=== PATIENT | male | born 1950 | race Two or more races ===

== ENCOUNTER 2017-05-09 20:20 | Inpatient (IN) | payer OTHER ==
[~2017-05-09] VITALS: Ht 172.7 cm; Wt 88.2 kg
[2017-05-09] MEDS ORDERED: METOPROLOL TARTRATE 50 MG TAB PO ONE (21:00)
[2017-05-09 21:05] LABS: Basophils # (auto) 0 uL; Basophils % (auto) 0.4 % (0.0-2.0); CONDITION Y; DEFINITIVE SEE PRINTOUT; Eosinophils # (auto) 0.1 uL; Eosinophils % (auto) 0.7 % (0.0-7.0); Hematocrit 50.5 % (41.0-53.0); Hemoglobin 16.3 g/dL (13.5-17.5); Lymphocytes # (auto) 2.8 uL; Lymphocytes % (auto) 24.6 % (10.0-50.0); Mean Corpuscular Hemoglobin 23.9 pg (28.0-32.0); Mean Corpuscular Hgb Conc. 32.3 g/dL (32.0-36.0); Mean Corpuscular Volume 73.9 fL (80.0-100.0); Mean Platelet Volume 7.7 fL (7.4-10.4); Monocytes # (auto) 0.6 uL; Monocytes % (auto) 5.7 % (0.0-12.0); Neutrophils # (auto) 7.7 uL; Neutrophils % (auto) 68.6 % (37.0-80.0); Platelet Count (auto) 288 10^3/uL (140-450); White Blood Cell 11.2 10^3/uL (4.4-10.8)
[2017-05-09 21:19] LABS: INR 1.1 (0.9-1.15); Partial Thromboplastin Time 30.6 sec (22.64-33.71)
[2017-05-09 21:32] LABS: Albumin 2.4 g/dL (3.4-5.0); Alkaline Phosphatase 86 U/L (45-117); Anion Gap 11 (5-15); BUN/Creatinine Ratio 9.7; Bilirubin, Total 0.6 mg/dL (0.2-1.0); Blood Urea Nitrogen 7 mg/dL (7-18); Calcium 8.8 mg/dL (8.5-10.1); Carbon Dioxide 25 mmol/L (21-32); Chloride 100 mmol/L (98-107); GFR African American 141 mL/min; GFR Non-African American 116 mL/min; Glucose 130 mg/dL (74-106); Magnesium 2.3 mg/dL (1.6-2.6); Sodium 136 mmol/L (136-145); Total Protein 7.4 g/dL (6.4-8.2)
[2017-05-09 21:37] LABS: Aspartate Aminotransferase 46 U/L (15-37); Potassium 3.9 mmol/L (3.5-5.1)
[2017-05-09 21:58] LABS: B-Type Natriuretic Peptide 133.76 pg/mL (0-100)
[2017-05-09 21:59] LABS: Temperature: 22.7 C (20.0-25.0)
[2017-05-09] MEDS ORDERED: IOHEXOL 350 MG/ML 100ML IJ ONE (22:45)
[2017-05-10] VITALS (10 sets, daily range): BP systolic 115–133; BP diastolic 65–87
[2017-05-10] MEDS ORDERED: MORPHINE SULF INJ 2 MG/ML SYRINGE 1ML IV PRN (04:00)
[2017-05-10] MEDS ORDERED: LACTULOSE 20Gm/30ML SOLN PO PRN (04:00)
[2017-05-10] MEDS ORDERED: ONDANSETRON HCL 4 MG/2 ML VIAL IV PRN (04:00)
[2017-05-10] MEDS ORDERED: NITROGLYCERIN 0.4 MG SL TAB SL PRN (04:00)
[2017-05-10] MEDS: SODIUM CHLORIDE 0.9% 1,000 ML IV SCH ×2 (04:37→17:27)
[2017-05-10] MEDS: LEVOFLOXACIN 500MG 100 ML IV SCH (04:37)
[2017-05-10] MEDS: MORPHINE SULFATE 4 MG/ML SYRG IV PRN ×4 (04:38→19:59)
[2017-05-10] MEDS: cefTRIAXone 1GM/50ML D5W 50 ML IV SCH (05:00)
[2017-05-10] MEDS ORDERED: ENOXAPARIN SOD 80 MG/0.8ML SYRINGE SC SCH (05:00)
[2017-05-10] MEDS: MESALAMINE 400mg Delayed Release Cap PO SCH ×3 (05:34→22:00)
[2017-05-10] MEDS: ALBUTEROL SULF 2.5 MG/0.5ML(0.5%) NEB SOLN HHN SCH ×5 (06:44→22:04)
[2017-05-10] MEDS: IPRATROPIUM BROM 0.5 MG/2.5ML INH SOL NEB SCH ×5 (06:44→22:04)
[2017-05-10] MEDS: ATENOLOL 50 MG TAB PO SCH (10:52)
[2017-05-10] MEDS: ASPirin 81 mg TAB PO SCH (10:52)
[2017-05-10] MEDS: PANTOPRAZOLE SODIUM 40 MG/10 ML VIAL IV SCH (10:52)
[2017-05-10] MEDS: FINASTERIDE 5 MG TAB PO SCH (10:53)
[2017-05-10] MEDS ORDERED: NAP500T PO (13:22)
[2017-05-10] MEDS ORDERED: SIMV-13 PO (13:22)
[2017-05-10] MEDS ORDERED: METO50TA7 PO (13:22)
[2017-05-10] MEDS ORDERED: ENAL20TA70 PO (13:22)
[2017-05-10] MEDS ORDERED: NITR0.4S29 SL (13:22)
[2017-05-10] MEDS ORDERED: ASPI-231 PO (13:22)
[2017-05-10] MEDS ORDERED: TAMS0.4C36 PO (13:22)
[2017-05-10] MEDS ORDERED: FER325T PO (13:22)
[2017-05-10] MEDS ORDERED: FINA5TAB4 PO (13:22)
[2017-05-10] MEDS ORDERED: IBUP600T27 PO (13:22)
[2017-05-10] MEDS ORDERED: ACETTAB85 PO (13:22)
[2017-05-10] MEDS: TAMSULOSIN HYDROCHLORIDE 0.4 MG CAP PO SCH (18:20)
[2017-05-10] MEDS: AMITRIPTYLINE HCL 25 MG TAB PO SCH (21:54)
[2017-05-10] MEDS: APIXABAN 5 MG TAB PO SCH (21:54)
[2017-05-10] MEDS: ATORVASTATIN 20 MG TAB PO SCH (21:55)
[2017-05-10 23:07] LABS: Urine Bilirubin Negative (Negative); Urine Blood Negative /uL (Negative); Urine Color Yellow (Yellow); Urine Glucose Normal (Normal); Urine Hyaline Cast FEW /lpf (0 - 2); Urine Ketone Negative (Negative); Urine Mucus FEW (None Seen); Urine Nitrite Negative (Negative); Urine RBC 9 /hpf (0 - 3); Urine pH 6.5 (5.0-8.0)
[2017-05-11] VITALS (7 sets, daily range): BP systolic 97–124; BP diastolic 63–74
[2017-05-11] MEDS: IPRATROPIUM BROM 0.5 MG/2.5ML INH SOL NEB SCH ×6 (02:38→22:33)
[2017-05-11] MEDS: ALBUTEROL SULF 2.5 MG/0.5ML(0.5%) NEB SOLN HHN SCH ×6 (02:38→22:33)
[2017-05-11] MEDS: LEVOFLOXACIN 500MG 100 ML IV SCH (04:09)
[2017-05-11] MEDS: cefTRIAXone 1GM/50ML D5W 50 ML IV SCH (04:17)
[2017-05-11] MEDS: MORPHINE SULFATE 4 MG/ML SYRG IV PRN ×4 (05:34→23:16)
[2017-05-11 06:00] LABS: Basophils # (auto) 0 uL; Basophils % (auto) 0.4 % (0.0-2.0); CONDITION Y; DEFINITIVE SEE PRINTOUT; Eosinophils # (auto) 0.1 uL; Eosinophils % (auto) 0.7 % (0.0-7.0); Hematocrit 46.9 % (41.0-53.0); Hemoglobin 15.3 g/dL (13.5-17.5); Lymphocytes # (auto) 1.3 uL; Lymphocytes % (auto) 15.1 % (10.0-50.0); Mean Corpuscular Hemoglobin 24.4 pg (28.0-32.0); Mean Corpuscular Hgb Conc. 32.7 g/dL (32.0-36.0); Mean Corpuscular Volume 74.7 fL (80.0-100.0); Mean Platelet Volume 7.8 fL (7.4-10.4); Monocytes # (auto) 0.5 uL; Monocytes % (auto) 5.6 % (0.0-12.0); Neutrophils # (auto) 6.8 uL; Neutrophils % (auto) 78.2 % (37.0-80.0); Platelet Count (auto) 266 10^3/uL (140-450); Red Cell Distribution Width 16.8 % (11.6-16.0); White Blood Cell 8.7 10^3/uL (4.4-10.8)
[2017-05-11 06:08] LABS: Albumin 2.2 g/dL (3.4-5.0); BUN/Creatinine Ratio 11.6; Bilirubin, Total 0.6 mg/dL (0.2-1.0); Calcium 8.4 mg/dL (8.5-10.1); Potassium 3.1 mmol/L (3.5-5.1); Total Protein 6.4 g/dL (6.4-8.2)
[2017-05-11] MEDS: SODIUM CHLORIDE 0.9% 1,000 ML IV SCH ×2 (06:30→22:36)
[2017-05-11] MEDS: MESALAMINE 400mg Delayed Release Cap PO SCH ×3 (09:04→22:37)
[2017-05-11] MEDS ORDERED: POTASSIUM CHL 20 Meq TABLET PO ONE (10:30)
[2017-05-11] MEDS: ATENOLOL 50 MG TAB PO SCH (10:59)
[2017-05-11] MEDS: ASPirin 81 mg TAB PO SCH (11:00)
[2017-05-11] MEDS: FINASTERIDE 5 MG TAB PO SCH (11:00)
[2017-05-11] MEDS: PANTOPRAZOLE SODIUM 40 MG/10 ML VIAL IV SCH (11:01)
[2017-05-11] MEDS: APIXABAN 5 MG TAB PO SCH ×2 (11:01→22:37)
[2017-05-11] MEDS ORDERED: DEXTROSE (50%) 50ML SYRG IV PRN (12:00)
[2017-05-11] MEDS: InsuLIN REG 1unit/0.01ml Soln (100units/ml) SC SCH ×2 (17:00→22:00)
[2017-05-11] MEDS: ACCU-CHEK COMFORT CURVE STRIP VI SCH ×2 (18:01→22:38)
[2017-05-11] MEDS: TAMSULOSIN HYDROCHLORIDE 0.4 MG CAP PO SCH (18:02)
[2017-05-11] MEDS: ATORVASTATIN 20 MG TAB PO SCH (22:37)
[2017-05-11] MEDS: AMITRIPTYLINE HCL 25 MG TAB PO SCH (22:43)
[2017-05-12] VITALS: BP 109/73
[2017-05-12] MEDS: IPRATROPIUM BROM 0.5 MG/2.5ML INH SOL NEB SCH ×6 (02:00→22:39)
[2017-05-12] MEDS: ALBUTEROL SULF 2.5 MG/0.5ML(0.5%) NEB SOLN HHN SCH ×6 (02:00→22:38)
[2017-05-12 04:00] VITALS: BP 119/79
[2017-05-12] MEDS: LEVOFLOXACIN 500MG 100 ML IV SCH (04:05)
[2017-05-12] MEDS: cefTRIAXone 1GM/50ML D5W 50 ML IV SCH (05:06)
[2017-05-12] MEDS: MESALAMINE 400mg Delayed Release Cap PO SCH ×3 (05:06→21:52)
[2017-05-12] MEDS: MORPHINE SULFATE 4 MG/ML SYRG IV PRN ×3 (05:07→14:37)
[2017-05-12] MEDS: ACCU-CHEK COMFORT CURVE STRIP VI SCH ×4 (06:31→22:04)
[2017-05-12 06:32] LABS: BUN/Creatinine Ratio 7.9; Calcium 8.2 mg/dL (8.5-10.1); Potassium 3.3 mmol/L (3.5-5.1)
[2017-05-12] MEDS: InsuLIN REG 1unit/0.01ml Soln (100units/ml) SC SCH ×4 (06:32→22:00)
[2017-05-12 08:00] VITALS: BP 134/88
[2017-05-12] MEDS: predniSONE 20 MG TAB PO SCH (10:20)
[2017-05-12] MEDS: ASPirin 81 mg TAB PO SCH (10:20)
[2017-05-12] MEDS: PANTOPRAZOLE SODIUM 40 MG/10 ML VIAL IV SCH (10:20)
[2017-05-12] MEDS: APIXABAN 5 MG TAB PO SCH ×2 (10:21→21:52)
[2017-05-12] MEDS: ATENOLOL 50 MG TAB PO SCH (10:21)
[2017-05-12] MEDS: FINASTERIDE 5 MG TAB PO SCH (10:22)
[2017-05-12 12:00] VITALS: BP 113/65
[2017-05-12] MEDS ORDERED: POTASSIUM CHL 20 Meq TABLET PO ONE (13:00)
[2017-05-12] MEDS: SODIUM CHLORIDE 0.9% 1,000 ML IV SCH (15:00)
[2017-05-12] MEDS ORDERED: NORT25CA PO (15:37)
[2017-05-12] MEDS ORDERED: PRED-559 PO (15:37)
[2017-05-12] MEDS ORDERED: METF-371 PO (15:37)
[2017-05-12 15:47] VITALS: BP 127/78
[2017-05-12] MEDS: TAMSULOSIN HYDROCHLORIDE 0.4 MG CAP PO SCH (18:11)
[2017-05-12] MEDS: MORPHINE SULF INJ 2 MG/ML SYRINGE 1ML IV PRN ×3 (20:17→23:57)
[2017-05-12] MEDS: AMITRIPTYLINE HCL 25 MG TAB PO SCH (21:51)
[2017-05-12] MEDS: ATORVASTATIN 20 MG TAB PO SCH (21:52)
[2017-05-12 22:10] VITALS: BP 110/77
[2017-05-12] MEDS: HYDROCORTISONE 100 MG/60 ML RECT ENEMA PR SCH (22:25)
[2017-05-13] MEDS: IPRATROPIUM BROM 0.5 MG/2.5ML INH SOL NEB SCH ×6 (02:12→22:22)
[2017-05-13] MEDS: ALBUTEROL SULF 2.5 MG/0.5ML(0.5%) NEB SOLN HHN SCH ×6 (02:13→22:22)
[2017-05-13] MEDS: SODIUM CHLORIDE 0.9% 1,000 ML IV SCH ×3 (04:09→23:00)
[2017-05-13] MEDS: MORPHINE SULF INJ 2 MG/ML SYRINGE 1ML IV PRN ×4 (04:09→18:14)
[2017-05-13 05:45] VITALS: BP 125/80
[2017-05-13] MEDS: InsuLIN REG 1unit/0.01ml Soln (100units/ml) SC SCH ×4 (06:11→22:00)
[2017-05-13] MEDS: ACCU-CHEK COMFORT CURVE STRIP VI SCH ×4 (06:13→22:05)
[2017-05-13] MEDS: MESALAMINE 400mg Delayed Release Cap PO SCH ×3 (06:13→22:02)
[2017-05-13 06:34] LABS: BUN/Creatinine Ratio 6.3; Calcium 8.5 mg/dL (8.5-10.1); Magnesium 1.8 mg/dL (1.6-2.6); Potassium 3.5 mmol/L (3.5-5.1)
[2017-05-13] MEDS: APIXABAN 5 MG TAB PO SCH ×2 (08:39→22:03)
[2017-05-13] MEDS: PANTOPRAZOLE SODIUM 40 MG/10 ML VIAL IV SCH (08:39)
[2017-05-13] MEDS: FINASTERIDE 5 MG TAB PO SCH (08:39)
[2017-05-13] MEDS: ASPirin 81 mg TAB PO SCH (08:40)
[2017-05-13] MEDS: ATENOLOL 50 MG TAB PO SCH (08:40)
[2017-05-13] MEDS: predniSONE 20 MG TAB PO SCH (08:40)
[2017-05-13 09:19] VITALS: BP 126/80
[2017-05-13] MEDS ORDERED: MAGNESIUM SULFATE 1GM/100ML 100 ML IV ONE (10:30)
[2017-05-13] MEDS: ENALAPRIL MALEATE 2.5 MG TAB PO SCH ×2 (12:10→22:03)
[2017-05-13 13:50] VITALS: BP 126/81
[2017-05-13 16:14] VITALS: BP 117/72
[2017-05-13] MEDS: TAMSULOSIN HYDROCHLORIDE 0.4 MG CAP PO SCH (18:09)
[2017-05-13 19:25] VITALS: BP 117/72
[2017-05-13 22:00] VITALS: BP 122/66
[2017-05-13] MEDS: HYDROCORTISONE 100 MG/60 ML RECT ENEMA PR SCH (22:00)
[2017-05-13] MEDS: ATORVASTATIN 20 MG TAB PO SCH (22:02)
[2017-05-13] MEDS: AMITRIPTYLINE HCL 25 MG TAB PO SCH (22:04)
[2017-05-14] MEDS: MORPHINE SULF INJ 2 MG/ML SYRINGE 1ML IV PRN ×5 (01:07→20:03)
[2017-05-14 05:00] VITALS: BP 123/88
[2017-05-14] MEDS: MESALAMINE 400mg Delayed Release Cap PO SCH ×3 (05:25→22:40)
[2017-05-14] MEDS: ACCU-CHEK COMFORT CURVE STRIP VI SCH ×4 (05:40→22:00)
[2017-05-14] MEDS: InsuLIN REG 1unit/0.01ml Soln (100units/ml) SC SCH ×4 (05:41→22:00)
[2017-05-14] MEDS: ALBUTEROL SULF 2.5 MG/0.5ML(0.5%) NEB SOLN HHN SCH ×6 (06:07→22:11)
[2017-05-14] MEDS: IPRATROPIUM BROM 0.5 MG/2.5ML INH SOL NEB SCH ×6 (06:07→22:12)
[2017-05-14 07:18] LABS: Basophils # (auto) 0 uL; Basophils % (auto) 0.3 % (0.0-2.0); CONDITION Y; DEFINITIVE SEE PRINTOUT; Eosinophils # (auto) 0.1 uL; Eosinophils % (auto) 0.7 % (0.0-7.0); Hematocrit 41.7 % (41.0-53.0); Hemoglobin 13.7 g/dL (13.5-17.5); Lymphocytes # (auto) 1.5 uL; Lymphocytes % (auto) 14.7 % (10.0-50.0); Mean Corpuscular Hgb Conc. 32.8 g/dL (32.0-36.0); Mean Corpuscular Volume 73.2 fL (80.0-100.0); Mean Platelet Volume 7.5 fL (7.4-10.4); Monocytes # (auto) 0.4 uL; Monocytes % (auto) 4.3 % (0.0-12.0); Neutrophils # (auto) 8.2 uL; Platelet Count (auto) 288 10^3/uL (140-450); Red Cell Distribution Width 16.9 % (11.6-16.0); White Blood Cell 10.2 10^3/uL (4.4-10.8)
[2017-05-14 07:55] LABS: Calcium 8.4 mg/dL (8.5-10.1); Magnesium 2.2 mg/dL (1.6-2.6); Potassium 3.4 mmol/L (3.5-5.1)
[2017-05-14 07:59] LABS: BUN/Creatinine Ratio 7.3
[2017-05-14 09:00] VITALS: BP 130/69
[2017-05-14] MEDS: ATENOLOL 50 MG TAB PO SCH (09:45)
[2017-05-14] MEDS: APIXABAN 5 MG TAB PO SCH ×2 (09:47→22:39)
[2017-05-14] MEDS: PANTOPRAZOLE SODIUM 40 MG/10 ML VIAL IV SCH (09:48)
[2017-05-14] MEDS: ASPirin 81 mg TAB PO SCH (09:48)
[2017-05-14] MEDS: predniSONE 20 MG TAB PO SCH (09:48)
[2017-05-14] MEDS: FINASTERIDE 5 MG TAB PO SCH (09:48)
[2017-05-14] MEDS: ENALAPRIL MALEATE 2.5 MG TAB PO SCH ×2 (09:53→22:40)
[2017-05-14 13:15] VITALS: BP 132/83
[2017-05-14 17:33] VITALS: BP 134/77
[2017-05-14] MEDS: TAMSULOSIN HYDROCHLORIDE 0.4 MG CAP PO SCH (17:53)
[2017-05-14] MEDS: SODIUM CHLORIDE 0.9% 1,000 ML IV SCH (20:03)
[2017-05-14 22:00] VITALS: BP 124/85
[2017-05-14] MEDS: POTASSIUM CHL 20 Meq TABLET PO SCH (22:39)
[2017-05-14] MEDS: ATORVASTATIN 20 MG TAB PO SCH (22:39)
[2017-05-14] MEDS: HYDROCORTISONE 100 MG/60 ML RECT ENEMA PR SCH (22:40)
[2017-05-14] MEDS: AMITRIPTYLINE HCL 25 MG TAB PO SCH (22:40)
[2017-05-15] MEDS: MORPHINE SULF INJ 2 MG/ML SYRINGE 1ML IV PRN ×5 (01:41→20:23)
[2017-05-15] MEDS: ALBUTEROL SULF 2.5 MG/0.5ML(0.5%) NEB SOLN HHN SCH ×6 (02:12→21:51)
[2017-05-15] MEDS: IPRATROPIUM BROM 0.5 MG/2.5ML INH SOL NEB SCH ×6 (02:12→21:51)
[2017-05-15 05:00] VITALS: BP 130/89
[2017-05-15] MEDS: MESALAMINE 400mg Delayed Release Cap PO SCH ×3 (06:02→22:14)
[2017-05-15] MEDS: InsuLIN REG 1unit/0.01ml Soln (100units/ml) SC SCH ×4 (06:02→22:00)
[2017-05-15] MEDS: ACCU-CHEK COMFORT CURVE STRIP VI SCH ×4 (06:03→22:00)
[2017-05-15 08:28] VITALS: BP 154/97
[2017-05-15] MEDS: PANTOPRAZOLE SODIUM 40 MG/10 ML VIAL IV SCH (08:51)
[2017-05-15] MEDS: POTASSIUM CHL 20 Meq TABLET PO SCH ×2 (08:53→22:14)
[2017-05-15] MEDS: ATENOLOL 50 MG TAB PO SCH (08:54)
[2017-05-15] MEDS: APIXABAN 5 MG TAB PO SCH ×2 (08:55→22:14)
[2017-05-15] MEDS: ENALAPRIL MALEATE 2.5 MG TAB PO SCH ×2 (08:55→22:15)
[2017-05-15] MEDS: ASPirin 81 mg TAB PO SCH (08:55)
[2017-05-15] MEDS: predniSONE 20 MG TAB PO SCH (08:55)
[2017-05-15 08:57] LABS: Calcium 8.3 mg/dL (8.5-10.1); Magnesium 2.1 mg/dL (1.6-2.6); Potassium 3.4 mmol/L (3.5-5.1)
[2017-05-15] MEDS: FINASTERIDE 5 MG TAB PO SCH (08:57)
[2017-05-15 08:59] LABS: BUN/Creatinine Ratio 8.6
[2017-05-15 12:08] VITALS: BP 132/96
[2017-05-15] MEDS: SODIUM CHLORIDE 0.9% 1,000 ML IV SCH (12:32)
[2017-05-15 16:47] VITALS: BP 135/89
[2017-05-15] MEDS: TAMSULOSIN HYDROCHLORIDE 0.4 MG CAP PO SCH (17:36)
[2017-05-15 22:00] VITALS: BP 130/80
[2017-05-15] MEDS: AMITRIPTYLINE HCL 25 MG TAB PO SCH (22:13)
[2017-05-15] MEDS: ATORVASTATIN 20 MG TAB PO SCH (22:15)
[2017-05-15] MEDS: HYDROCORTISONE 100 MG/60 ML RECT ENEMA PR SCH (22:16)
[2017-05-16] MEDS: MORPHINE SULF INJ 2 MG/ML SYRINGE 1ML IV PRN ×4 (02:10→16:13)
[2017-05-16 05:00] VITALS: BP 126/87
[2017-05-16] MEDS: SODIUM CHLORIDE 0.9% 1,000 ML IV SCH (05:22)
[2017-05-16] MEDS: MESALAMINE 400mg Delayed Release Cap PO SCH ×3 (05:43→22:57)
[2017-05-16] MEDS: IPRATROPIUM BROM 0.5 MG/2.5ML INH SOL NEB SCH ×5 (06:34→22:05)
[2017-05-16] MEDS: ALBUTEROL SULF 2.5 MG/0.5ML(0.5%) NEB SOLN HHN SCH ×5 (06:34→22:05)
[2017-05-16] MEDS: ACCU-CHEK COMFORT CURVE STRIP VI SCH ×4 (06:37→22:00)
[2017-05-16] MEDS: InsuLIN REG 1unit/0.01ml Soln (100units/ml) SC SCH ×4 (06:38→22:00)
[2017-05-16 07:00] LABS: Calcium 8.6 mg/dL (8.5-10.1); Magnesium 2.2 mg/dL (1.6-2.6); Potassium 3.9 mmol/L (3.5-5.1)
[2017-05-16 08:00] VITALS: BP 139/97
[2017-05-16] MEDS: PANTOPRAZOLE SODIUM 40 MG/10 ML VIAL IV SCH (09:09)
[2017-05-16] MEDS: APIXABAN 5 MG TAB PO SCH ×2 (09:11→22:56)
[2017-05-16] MEDS: POTASSIUM CHL 20 Meq TABLET PO SCH (09:12)
[2017-05-16] MEDS: predniSONE 20 MG TAB PO SCH (09:12)
[2017-05-16] MEDS: FINASTERIDE 5 MG TAB PO SCH (09:12)
[2017-05-16] MEDS: ATENOLOL 50 MG TAB PO SCH (09:12)
[2017-05-16] MEDS: ASPirin 81 mg TAB PO SCH (09:12)
[2017-05-16] MEDS: ENALAPRIL MALEATE 2.5 MG TAB PO SCH ×2 (09:13→22:58)
[2017-05-16 12:00] VITALS: BP 139/88
[2017-05-16] MEDS: ADENOSINE 74 MG in GIVE UN-DILUTED 0 ML IV ONE (15:44)
[2017-05-16 17:15] VITALS: BP 121/81
[2017-05-16] MEDS: TAMSULOSIN HYDROCHLORIDE 0.4 MG CAP PO SCH (17:46)
[2017-05-16 22:31] VITALS: BP 114/78
[2017-05-16] MEDS: ATORVASTATIN 20 MG TAB PO SCH (22:57)
[2017-05-16] MEDS: AMITRIPTYLINE HCL 25 MG TAB PO SCH (22:57)
[2017-05-16] MEDS: HYDROCORTISONE 100 MG/60 ML RECT ENEMA PR SCH (22:59)
[2017-05-17 01:57] VITALS: BP 114/78
[2017-05-17] MEDS: ALBUTEROL SULF 2.5 MG/0.5ML(0.5%) NEB SOLN HHN SCH ×6 (02:08→22:14)
[2017-05-17] MEDS: IPRATROPIUM BROM 0.5 MG/2.5ML INH SOL NEB SCH ×6 (02:08→22:14)
[2017-05-17 05:22] VITALS: BP 128/76
[2017-05-17] MEDS: MESALAMINE 400mg Delayed Release Cap PO SCH ×3 (05:31→21:31)
[2017-05-17] MEDS: InsuLIN REG 1unit/0.01ml Soln (100units/ml) SC SCH ×4 (07:00→21:53)
[2017-05-17] MEDS: ACCU-CHEK COMFORT CURVE STRIP VI SCH ×4 (07:01→21:53)
[2017-05-17 07:13] LABS: BUN/Creatinine Ratio 21.9; Calcium 8.6 mg/dL (8.5-10.1); Potassium 3.8 mmol/L (3.5-5.1)
[2017-05-17] MEDS: PANTOPRAZOLE SODIUM 40 MG/10 ML VIAL IV SCH (10:18)
[2017-05-17] MEDS: predniSONE 20 MG TAB PO SCH (10:19)
[2017-05-17] MEDS: ENALAPRIL MALEATE 2.5 MG TAB PO SCH ×2 (10:19→22:20)
[2017-05-17] MEDS: MORPHINE SULF INJ 2 MG/ML SYRINGE 1ML IV PRN ×3 (10:20→21:52)
[2017-05-17] MEDS: POTASSIUM CHL 20 Meq TABLET PO SCH (10:22)
[2017-05-17] MEDS: FINASTERIDE 5 MG TAB PO SCH (10:22)
[2017-05-17] MEDS: ASPirin 81 mg TAB PO SCH (10:23)
[2017-05-17] MEDS: ATENOLOL 50 MG TAB PO SCH (10:23)
[2017-05-17] MEDS: APIXABAN 5 MG TAB PO SCH (10:24)
[2017-05-17 13:00] VITALS: BP 108/73
[2017-05-17] MEDS ORDERED: ATROPINE SULF 0.5 MG/5ML SYR ONE ×2 (13:05→13:17)
[2017-05-17] MEDS ORDERED: AMINOPHYLLINE 250 MG/10 ML VL IV ONE (13:05)
[2017-05-17] MEDS: ADENOSINE 74 MG in GIVE UN-DILUTED 0 ML IV ONE (13:31)
[2017-05-17 17:00] VITALS: BP 109/80
[2017-05-17] MEDS: TAMSULOSIN HYDROCHLORIDE 0.4 MG CAP PO SCH (17:32)
[2017-05-17] MEDS: AMITRIPTYLINE HCL 25 MG TAB PO SCH (21:32)
[2017-05-17] MEDS: HYDROCORTISONE 100 MG/60 ML RECT ENEMA PR SCH (21:33)
[2017-05-17] MEDS: ATORVASTATIN 20 MG TAB PO SCH (21:33)
[2017-05-17 22:00] VITALS: BP 109/75
[2017-05-17 22:57] VITALS: BP 104/74
[2017-05-18] MEDS: MORPHINE SULF INJ 2 MG/ML SYRINGE 1ML IV PRN ×4 (01:50→16:21)
[2017-05-18] MEDS: ALBUTEROL SULF 2.5 MG/0.5ML(0.5%) NEB SOLN HHN SCH ×4 (02:07→14:40)
[2017-05-18] MEDS: IPRATROPIUM BROM 0.5 MG/2.5ML INH SOL NEB SCH ×4 (02:07→14:40)
[2017-05-18 05:00] VITALS: BP 126/80
[2017-05-18] MEDS: MESALAMINE 400mg Delayed Release Cap PO SCH (06:02)
[2017-05-18] MEDS: ACCU-CHEK COMFORT CURVE STRIP VI SCH ×2 (06:43→12:09)
[2017-05-18] MEDS: InsuLIN REG 1unit/0.01ml Soln (100units/ml) SC SCH ×2 (06:44→12:08)
[2017-05-18 09:35] VITALS: BP 115/80
[2017-05-18] MEDS: PANTOPRAZOLE SODIUM 40 MG/10 ML VIAL IV SCH (10:21)
[2017-05-18] MEDS: FINASTERIDE 5 MG TAB PO SCH (10:21)
[2017-05-18] MEDS: predniSONE 20 MG TAB PO SCH (10:22)
[2017-05-18] MEDS: ENALAPRIL MALEATE 2.5 MG TAB PO SCH (10:23)
[2017-05-18] MEDS: ATENOLOL 50 MG TAB PO SCH (10:23)
[2017-05-18] MEDS: POTASSIUM CHL 20 Meq TABLET PO SCH (10:24)
[2017-05-18] MEDS: ASPirin 81 mg TAB PO SCH (10:24)
[2017-05-18 12:54] VITALS: BP 113/68
[2017-05-18] MEDS ORDERED: PRED-559 PO (14:22)
[2017-05-18] MEDS ORDERED: MESA400C PO (14:22)
[2017-05-18] MEDS ORDERED: PANT40TA2 PO (14:27)
[2017-05-18 15:07] VITALS: BP 115/80
== END 2017-05-18 17:20 | disposition home or self-care (01) | DRG 385 ==
LOC: EDBD 20:20 → ER 20:24 → TELE 20:25 → ICU WEST 05-10 08:11 → DOU IN ICU 05-11 00:13 → TELE-CENTR 05-12 16:35
PROVIDERS: ADMIT Family Medicine; ATTEND Internal Medicine
DX: K51.90 Ulcerative colitis, unspecified, without complications (principal); I26.99 Other pulmonary embolism without acute cor pulmonale; D68.59 Other primary thrombophilia; I42.0 Dilated cardiomyopathy; I47.2 Ventricular tachycardia; E44.1 Mild protein-calorie malnutrition; E78.5 Hyperlipidemia, unspecified; N40.0 Benign prostatic hyperplasia without lower urinary tract symptoms; E87.6 Hypokalemia; E11.9 Type 2 diabetes mellitus without complications; I25.10 Atherosclerotic heart disease of native coronary artery without angina pectoris; W18.39XA Other fall on same level, initial encounter; I25.5 Ischemic cardiomyopathy; Z82.49 Family history of ischemic heart disease and other diseases of the circulatory system; Z83.3 Family history of diabetes mellitus; Z90.49 Acquired absence of other specified parts of digestive tract; Y93.89 Activity, other specified; Y92.89 Other specified places as the place of occurrence of the external cause; Y99.8 Other external cause status; Z79.899 Other long term (current) drug therapy; Z71.3 Dietary counseling and surveillance; I11.9 Hypertensive heart disease without heart failure
CPT/HCPCS: 36415; 70450; 70486; 71010; 71260; 74176; 78452; 80048; 80053; 80061; 81001; 82962; 83036; 83735; 83880; 84132; 84443; 84484; 85025; 85379; 85610; 85730; 87040; 87045; 87081; 87493; 87899; 93005; 93017; 93306; 93970; 94640; 96372; 96374; 96375; C9113; J0153; J0461; J0696; J1815; J1956; J2405